=== PATIENT | male | born 1970 | race Caucasian/White ===

== ENCOUNTER 2016-09-07 11:02 | Day surgery (SDC) | payer OTHER ==
--- NOTE | 2016-08-27 20:26 | HP ---
PREOPERATIVE HISTORY AND PHYSICAL: DATE OF ADMISSION/SURGERY: 08/31/16 [facility] DATE OF OFFICE VISIT: 08/27/16 ATTENDING SURGEON: Dr. Che Castro. (DICTATED BY CARLOS BURGER) PROCEDURE: Left shoulder arthroscopic excision of distal clavicle, decompression, debridement, and possible subpectoral biceps tenodesis. CHIEF COMPLAINT: Left shoulder pain. HISTORY OF PRESENT ILLNESS: Grady is a 45-year-old man, who presents to the clinic for ongoing left shoulder pain due to impingement syndrome and biceps tendinitis. He has had this pain for several months. He has failed conservative measures to include physical therapy and injection; therefore, agreed to undergo left shoulder arthroscopic excision of distal clavicle, decompression, debridement, and possible subpectoral biceps tenodesis with Dr. Castro on 08/31/16. PAST MEDICAL HISTORY: 1. Diabetes. 2. Hypertension. 3. Gout. 4. Anxiety. 5. Depression. 6. Hyperlipidemia. PAST SURGICAL HISTORY: 1. Brain surgery. 2. Right Achilles tendon repair. 3. Bilateral knee surgeries. 4. [place] teeth. 5. Right wrist ORIF. Denies prior complications with anesthesia. MEDICATIONS: 1. Venlafaxine HCl ER 150 mg take 1 tab by mouth every day. 2. Allopurinol 300 mg take 1 by mouth every day. 3. Amlodipine besylate 5 mg take 1 by mouth every day. 4. Lisinopril 20 mg take 1 by mouth daily. 5. Divalproex sodium ER 250 mg 1 by mouth daily. 6. Advil 200 mg as needed. 7. Icy Hot 2.5% apply to the area as directed on package. 8. Zocor. ALLERGIES: No known drug allergies. Not allergic to latex. Allergy to BEE STING. FAMILY HISTORY: Positive for high cholesterol. SOCIAL HISTORY: He lives with his . He works as a lunch truck driver. He denies tobacco use. He reports occasional alcohol consumption. REVIEW OF SYSTEMS: General: Negative for fever, chills, or night sweats. No known anesthesia problems. HEENT: Positive for headache. Denies lightheadedness or syncopal episodes. Integumentary: Negative for abrasions, lesions, or open wounds. Cardiothoracic: Negative for chest pain, palpitations , or edema. Positive for hypertension. Pulmonary: Negative for shortness of breath with exertion, chronic cough, or COPD. GI: Positive for intermittent GERD and denies nausea, vomiting, diarrhea, or constipation. : Negative for nocturia, urinary frequency, history of UTIs, or kidney problems. Musculoskeletal: Positive for current complaint. Neuro: Negative for numbness and tingling, history of seizure, stroke, or epilepsy. Endocrine: Positive for diabetes. Negative for thyroid issues. Heme: Negative for easy bruising, anemia, excessive bleeding. Denies history of DVT or PE. Denies history of bleeding disorder. Infectious Disease: Negative for history of MRSA , hep C, or HIV. PHYSICAL EXAMINATION GENERAL: A 45-year-old, well-developed, well-nourished male, in no acute distress, alert and oriented x3. Appropriate mood and affect. VITAL SIGNS: Height 68, weight 245, pulse 64, blood pressure 113/65, respiratory rate 16, temperature 97.9, BMI 37.2. HEENT: Normocephalic, atraumatic. PERRLA. NECK: Supple. Throat clear. PULMONARY: Lungs are clear to auscultation bilaterally. No wheezing, rhonchi, or rales. CARDIO: Regular rate and rhythm. S1, S2. No murmurs, gallops, or rubs. No edema. ABDOMEN: Positive bowel sounds. Soft and nontender. NEURO: Alert and oriented x3. Cranial nerves grossly intact. Sensation intact to light touch. MUSCULOSKELETAL: Left upper extremity: Skin is intact. No warmth or erythema. Tenderness to palpation over the AC joint and the proximal biceps. Forward flexion 150, abduction 130, external rotation 55, internal rotation to the lumbar spine. +5/5 strength with rotator cuff testing. Positive Neer, [place], [place], and [place]. +2 radial and ulnar pulse. Sensation intact to light touch distally. DIAGNOSTIC STUDIES: MRI of the left shoulder reveals evidence of impingement _ in the biceps groove. No evidence of full-thickness rotator cuff tear. IMPRESSION: Left shoulder subacromial impingement, biceps tendinitis, and acromioclavicular joint arthritis. PLAN: The patient is scheduled to undergo a left shoulder arthroscopic excision of distal clavicle, decompression, debridement, possible subpectoral biceps tenodesis with Dr. Castro on 08/31/16. He will return to the office 10 to 14 days for postop and suture removal. Percocet will be used for postop pain management. CARLOS BURGER [id number]/[facility] #: [id number] MTDD
[~2016-09-07 11:02] MED LIST: Buffered Lidocaine 0.9% SYRIN* 5 ML/SYR SYRINGE INTRADERM ONE; Famotidine IV* 10 MG/ML 2 ML (20 mg) IV ONE; Morphine INJ* 2 MG/ML 1 ML SYRINGE IV PRN; PROCHLORPERAZINE INJ 5 MG/ML 2 ML VIAL IV PRN; Scopolamine 1.5 mg* PATCH TRANSDERM PRN; fentaNYL* 50 MCG/ML 2 ML VIAL (100 MCG VIAL) IV PRN; oxyCODONE/Acetamin 5/325 MG* TAB PO PRN
[2016-09-07] MEDS ORDERED: Famotidine IV* 10 MG/ML 2 ML (20 mg) ONE (11:15)
[2016-09-07] MEDS ORDERED: ceFAZolin 2 GM PREMIX(*) 2 GM/50 ML BAG IVPB ONE (11:15)
[2016-09-07] MEDS ORDERED: Buffered Lidocaine 0.9% SYRIN* 5 ML/SYR SYRINGE ONE (11:16)
[2016-09-07] MEDS ORDERED: Midazolam* 1 MG/ML 5 ML VIAL (5 MG) ONE (12:02)
[2016-09-07] MEDS ORDERED: KETAMINE HCL* 50 MG/ML 10 ML VIAL ONE (12:02)
[2016-09-07] MEDS ORDERED: fentaNYL* 50 MCG/ML 2 ML VIAL (100 MCG VIAL) ONE (12:02)
[2016-09-07] MEDS ORDERED: Bupivacaine 0.25% SDV* 30 ML ONE ×2 (12:40→13:08)
[2016-09-07] MEDS ORDERED: methylPREDNISolone ACETATE 80* 80 MG/ML 1 ML VIAL ONE (14:30)
[2016-09-07] MEDS ORDERED: Propofol* 10 MG/ML 20 ML BTL IV PUSH ONE (14:36)
[2016-09-07] MEDS ORDERED: Lidocaine 2% PF * 5 ML VIAL ONE (14:36)
[2016-09-07] MEDS ORDERED: Ketorolac INJ* 30 MG/ML 1 ML VIAL ONE (14:36)
[2016-09-07] MEDS ORDERED: Ondansetron INJ* 2 MG/ML VIAL ONE (14:36)
[2016-09-07] MEDS ORDERED: Flumazenil* 0.1 MG/ML 5 ML MDV ONE (15:04)
[2016-09-07 16:26] VITALS: BP 118/72
[2016-09-10] MEDS ORDERED: Scopolomine PATCH Remove* 1 NOTE MISC PATCH OFF ONE (06:12)
--- NOTE | 2016-09-17 02:29 | OP ---
CC: PCP, Karan Collins MD * DATE OF OPERATION: 09/07/16 - [facility] DATE OF : 74 SURGEON: Che Castro MD MOTORCYCLE RACER: CARLOS Rogers ANESTHESIOLOGIST: Dr. Perry. ANESTHESIA: General interscalene block. PRE-OP DIAGNOSIS: Left shoulder AC joint arthritis with SLAP tear, also impingement. POST-OP DIAGNOSIS: Left shoulder AC joint arthritis with SLAP tear, also impingement. OPERATIVE PROCEDURE: 1. Left shoulder arthroscopy with extensive glenohumeral debridement. 2. Cervical decompression. 3. Distal clavicle excision. 4. Subpectoral biceps tenodesis. 5. Subacromial injection of Depo-Medrol. COMPLICATIONS: None. ESTIMATED BLOOD LOSS: Minimal. IMPLANTS USED: One 2.8 Q-FIX anchor. INDICATIONS: Grady Edgar is a 45-year-old male who sustained a work related injury to his shoulder and therefore, was diagnosed with impingement syndrome, biceps tendonitis, as well as AC joint arthritis. He failed conservative management including physical therapy and injection and after obtaining Worker' s Comp approval, has elected to proceed with surgery. Risks and benefits of the surgery were discussed at length, including but are not limited to bleeding , infection, damage to nerves, vessels, surrounding structures, wound nonhealing , persistent pain, scarring, stiffness, incomplete relief of symptoms, need for further surgery, risks of anesthesia, risk of DVT. He elected to proceed. DESCRIPTION OF PROCEDURE: The patient was greeted in the preoperative area by the attending surgeon. Correct extremity was marked and consent was confirmed. The patient then underwent interscalene nerve block by the anesthesiologist, then he was brought to the operating suite where he was placed in supine position on operating table. He then underwent general anesthesia with endotracheal intubation after which the patient was placed in the right lower decubitus position with axillary roll. All bony prominences were padded. He was secured with a peg board. The left arm was draped unsterile with 10 pounds of traction. The left shoulder was prepped and draped in usual sterile fashion beginning with chlorhexidine soap scrub, and alcohol wipe, and a final prep with ChloraPrep. After appropriate surgical pause indicating site, side, procedure, and administration of antibiotics, a posterolateral portal was made sharply with an 11 blade. The scope was positioned in the joint. The joint was examined. Mid biceps, the superior labrum was torn. The anterior portals were made in an outside- in fashion. Superior labrum was torn, a type 2 SLAP tear. The biceps was then tenotomized. The anterior, posterior, and superior labrum were then debrided back using a shaver. The undersurface of the subscap had some mild fraying, which was debrided back. The supraspinatus tendon had less than 5% tearing, which was also debrided back. Once the debridement was completed, after confirming that the glenoid had grade 0 chondral changes along the humerus and the glenoid, the inferior leaflet was then packed. After the debridement was complete, attention was directed to subacromial space. There was abundant bursitis in the subacromial space. Lateral portals were made in an outside-in fashion. The shaver was used to debride this back. The bursa was extensively removed. The under surface of the acromion was then skeletonized using acromioplasty and then a 4-0 oval moises was then used to do subacromial decompression. Once the acromioplasty was complete, all fluid and debris was removed from the subacromial space. The attention was directed to the AC joint. The moises was positioned in the anterior portal and the distal clavicle excision was done using the arthroscopic moises. 8 mm of distal clavicle was then removed using the arthroscopic moises. The distal clavicle was then taken through range of motion. All excess debris was removed using the shaver. At this point, an 18 -gauge needle was then placed in the subacromial space and once the distal clavicle incision and subacromial decompression was completed, attention was directed to the biceps. The bed was airplaned to the left side. The anterior aspect of the shoulder was prepped again using ChloraPrep and a #15 blade was used to make the incision in line with the biceps. The skin quality was quite poor. Soft tissue was carefully dissected using Metzenbaum scissors. Once the pec fascia was identified, the remainder of dissection was done bluntly. The Merlin was used to elevate the tissues proximally. Bicipital groove was identified and the biceps was brought through the groove. There is abundant synovitis apparent. The bicipital groove was then prepared using electrocautery device, a red ball rasp and osteotome. The Q-FIX anchor was then placed after drilling unicortically with excellent purchase. The sutures were passed through the biceps tendon. Once they were proximal to the bicipital groove, the excess stump was excised and then the sutures were shuttled back and tied and secured. The wounds were copiously irrigated with sterile saline. The portals were closed with 0 nylon. The anterior wound was closed with 2-0 Vicryl and 3-0 Monocryl. Again, the skin quality was poor. Sterile dressings were applied. The anterior wound was injected with 20 cc of 0.25% Marcaine. The subacromial space was injected with 80 mg of Depo and 5 cc of Marcaine. Sterile dressings was applied. A Cryo/Cuff and UltraSling were then applied. He was awoken from anesthesia and transferred to the PACU in stable condition. POSTOPERATIVE PLAN: He will be discharged on pain medications and antibiotics. He will be nonweightbearing for 6 weeks. He will be allowed to work on physical therapy in the first 10 to 14 days. He will follow up within 10 to 14 days as well. DVT prophylaxis was considered, but deferred due to no previous personal or family history. I will see the patient back in 10 to 14 days. [id number]/[facility] #: [id number] [facility] CENTERVivian
== END 2016-09-07 16:05 | disposition home or self-care (01) ==
LOC: OREAST 11:02
PROVIDERS: ATTEND Orthopaedic Surgery
DX: S43.432A Superior glenoid labrum lesion of left shoulder, initial encounter (principal); X58.XXXA Exposure to other specified factors, initial encounter; Y92.9 Unspecified place or not applicable; M19.012 Primary osteoarthritis, left shoulder; M25.812 Other specified joint disorders, left shoulder; M75.52 Bursitis of left shoulder; M65.812 Other synovitis and tenosynovitis, left shoulder; G47.30 Sleep apnea, unspecified; E11.9 Type 2 diabetes mellitus without complications; I10 Essential (primary) hypertension; M10.9 Gout, unspecified; F41.9 Anxiety disorder, unspecified; F32.9 Major depressive disorder, single episode, unspecified; E78.5 Hyperlipidemia, unspecified
CPT/HCPCS: C1776; J0690; J1040; J1885; J2250; J2405; J2704; J3010

== ENCOUNTER 2017-05-13 09:15 | Day surgery (SDC) | payer OTHER ==
[~2017-05-13 09:15] MED LIST changes: +Dexamethasone IV* 4 MG/ML 1 ML (4 MG) IV SLOW PU ONE; -Morphine INJ* 2 MG/ML 1 ML SYRINGE IV PRN; -PROCHLORPERAZINE INJ 5 MG/ML 2 ML VIAL IV PRN; -Scopolamine 1.5 mg* PATCH TRANSDERM PRN; -fentaNYL* 50 MCG/ML 2 ML VIAL (100 MCG VIAL) IV PRN; -oxyCODONE/Acetamin 5/325 MG* TAB PO PRN
[2017-05-13] MEDS ORDERED: Famotidine IV* 10 MG/ML 2 ML (20 mg) ONE (09:36)
[2017-05-13] MEDS ORDERED: Buffered Lidocaine 0.9% SYRIN* 5 ML/SYR SYRINGE ONE (09:36)
[2017-05-13] MEDS ORDERED: ceFAZolin 2 GM in 100 MLS NS (*) BAG IVPB ONE (09:36)
[2017-05-13] MEDS ORDERED: Dexamethasone IV* 4 MG/ML 1 ML (4 MG) ONE (09:36)
[2017-05-13] MEDS ORDERED: Bupivacaine 0.5% SDV PF* 10-30ML VIAL ONE (10:30)
[2017-05-13] MEDS ORDERED: fentaNYL* 50 MCG/ML 2 ML VIAL (100 MCG VIAL) ONE (10:35)
[2017-05-13] MEDS ORDERED: Midazolam* 1 MG/ML 10 ML VIAL (10 MG) ONE (10:35)
[2017-05-13] MEDS ORDERED: Propofol* 10 MG/ML 20 ML BTL IV PUSH ONE (10:36)
[2017-05-13] MEDS ORDERED: Chloroprocaine 2%* 20 ML VIAL ONE (10:36)
[2017-05-13] MEDS ORDERED: Ondansetron INJ* 2 MG/ML VIAL ONE (10:36)
[2017-05-13] MEDS ORDERED: Phenylephrine INJ* 10 MG/ML 1 ML VIAL (10 MG) ONE (11:08)
[2017-05-13] MEDS ORDERED: fentaNYL* 50 MCG/ML 2 ML VIAL (100 MCG VIAL) IV PRN (11:09)
[2017-05-13] MEDS ORDERED: HYDROmorphone INJ* 1 MG/ML CARPUJECT SYRINGE IV PRN (11:09)
[2017-05-13] MEDS ORDERED: DiMENhydriNATE IV* 50 MG/ML VIAL IV PUSH PRN (11:09)
[2017-05-13] MEDS ORDERED: Naloxone* 0.4 MG/ML 1 ML VIAL IV PRN (11:09)
[2017-05-13] MEDS ORDERED: oxyCODONE/Acetamin 5/325 MG* TAB PO PRN (11:09)
[2017-05-13] MEDS ORDERED: Ondansetron INJ* 2 MG/ML VIAL IV PRN (11:09)
--- NOTE | 2017-05-13 11:46 | OP ---
Operative Report - Blank - Operative Report Date of Operation: 05/13/17 Note: PATIENT: Grady Edgar DATE OF : 74 DATE OF SURGERY: 05/13/17 SURGEON: Klaus Diego MD SPRING ASSEMBLER: CARLOS Nelson, whos assistance was necessary for positioning, retraction, help with instrumentation, and closure. ANESTHESIOLOGIST: Dr. Tang PREOPERATIVE DIAGNOSIS: Right gastrocnemius contracture POSTOPERATIVE DIAGNOSIS: Right gastrocnemius contracture OPERATION: 1. Right modified Beatrice gastrocnemius recession. 2. Right plantaris tenotomy. ANESTHESIA: spinal IMPLANTS: none TOURNIQUET TIME: Less than 30 minutes with a well-padded thigh tourniquet at 250mmHg SPECIMENS: none ESTIMATED BLOOD LOSS: minimal COMPLICATIONS: none STATUS: Stable from the operating room to the recovery room and then home. INDICATIONS FOR PROCEDURE: Grady has bilateral metatarsalgia and gastrocnemius contractures. Both operative and non operative treatment alternatives were reviewed. Further, the nature and risks of surgery were reviewed in careful detail, in the office as well as the pre-operative holding area. Our discussions regarding the risks of surgery included, but were not limited to, infection, wound problems, nerve injury, neuroma, RSD, persistent symptoms, blood clot, persistent symptoms, failure of the surgery, and even the remote chance of catastrophic complication, including loss of limb. DESCRIPTION OF PROCEDURE: The patient was seen in the preoperative holding unit and informed written consent was obtained. The appropriate extremity was marked. The patient was then brought to the operating room and carefully positioned on the operating room table. Anesthesia was induced. All bony prominences were padded with great care. A well-padded thigh tourniquet was placed. A chlorhexidine based pre- scrub was performed followed by a chloraprep prep and drape in standard sterile fashion. A surgical safety pause was then conducted in which we confirmed the appropriate patient, extremity, planned procedure, availability of equipment, indication and administration of prophylactic antibiotics, and DVT prophylaxis in the form of a compression boot on the non-surgical extremity. I began with Esmarch exsanguination of the limb and inflated the tourniquet. I then made an approximately 3-cm incision at the posteromedial calf. I carried the dissection through the soft tissue and divided the crural fascia longitudinally. I then exposed the fascia of the gastrocnemius muscle. Great care was taken to protect the sural nerve throughout this procedure. I cleared all adhesions from the posterior aspect of the gastrocnemius fascia and then transected this in its entirety from medially to laterally. I then identified the plantaris tendon, which was also tight medially. This was transected. These procedures had the effect of improving the ankle dorsiflexion to approximately 10 degrees. I then again confirmed that the sural nerve was in continuity. We irrigated copiously. We then used #3-0 Monocryl for the subdermal layer and marcus for the skin. A sterile dressing was applied followed by a splint with the ankle in neutral position. The patient was then awakened from anesthesia and transferred to the recovery room in stable condition. There were no complications. All needle and sponge counts were correct at the end of the case. ATTESTATION: I attest I was present and scrubbed and performed the critical portions of the procedure myself. POSTOPERATIVE PLAN: The patient will remain [id number] for two weeks. At that time, sutures will be removed and Steri-Strips applied and transition into a tall Aircast boot and begin weight-bearing at that time. The patient will remain in the boot until four to six weeks postoperatively. We will begin physical therapy after the first postoperative visit.
[2017-05-13 12:47] VITALS: BP 146/93
== END 2017-05-13 12:49 | disposition home or self-care (01) ==
LOC: OR 09:15
PROVIDERS: ATTEND Orthopaedic Surgery
DX: M67.01 Short Achilles tendon (acquired), right ankle (principal); M67.02 Short Achilles tendon (acquired), left ankle; M77.41 Metatarsalgia, right foot; M77.42 Metatarsalgia, left foot; E11.9 Type 2 diabetes mellitus without complications; Z79.84 Long term (current) use of oral hypoglycemic drugs; I10 Essential (primary) hypertension; K21.9 Gastro-esophageal reflux disease without esophagitis; Z68.36 Body mass index [BMI] 36.0-36.9, adult; F41.8 Other specified anxiety disorders; M10.9 Gout, unspecified
CPT/HCPCS: J1100; J2250; J2400; J2405; J2704; J3010

== ENCOUNTER 2017-05-24 18:10 | Emergency (ER) | payer OTHER ==
--- OUTSIDE RECORDS SUMMARY | 2017-05-24 18:29 | XMS REPORT ---
:1970 External Reference #:[id number] Author Organization [facility] Address [address] [address] Phone [phone] Care Team Providers Name Role Phone Collins, KaranDO Primary Care Physician Unavailable Payers Type Date Identification Numbers Payment Provider Subscriber Workers Compensation Effective: Policy Number: [id number] Austin Edgar 2016 Services Onset: 2016 Group Name: [id number] [address] PayID: [place] [address] Commercial Policy Number: [id number] Lifetime Benefit Solution Chica Edgar PayID: [id number] [address] [place] [address] Problems Date Description Provider Status Onset: 09/11/2016 Bicipital tenosynovitis Che Castro MD Active Onset: 06/09/2016 Sprain of left acromioclavicular joint, Che Castro MD Active subsequent encounter Onset: 06/09/2016 Injury of shoulder region Che Castro MD Active Onset: 06/09/2016 Disorder of shoulder Che Castro MD Active Family History Date Family Member(s) Problem(s) Comments General No Current Problems Social History Type Date Description Comments Marital Status Lives With Occupation Currently Working heavy truck mechanic ETOH Use Occasionally consumes alcohol Smoking Patient has never smoked Recreational Drug Use Denies Drug Use Daily Caffeine Does Not Consume Caffeine Exercise Type/Frequency Exercises sporadically Allergies, Adverse Reactions, Alerts Date Description Reaction Status Severity Comments 02/07/2016 NKDA active 02/07/2016 Bee Sting active Medications Medication Date Status Form Strength Qnty SIG Indications Ordering Provider Venlafaxine HCL / Active Caps ER 150mg Take One Unknown ER 0000 24HR Capsule By Mouth Every Day Allopurinol / Active Tablets 300mg Take One Unknown 0000 Tablet By Mouth Every Day Amlodipine / Active Tablets 5mg Take One Unknown Besylate 0000 Tablet By Mouth Every Day Lisinopril / Active Tablets 20mg Take One Unknown 0000 Tablet By Mouth Every Day Divalproex / Active Tablets ER 250mg Take One Unknown Sodium ER 0000 24HR Tablet By Mouth Every Day Advil / Active Tablets 200mg 3 po as Unknown 0000 needed Icy Hot Pain / Active Gel 2.5% apply to Unknown Relieving 0000 area as directed on package Zocor / Active Unknown 0000 Keflex 09/11/ Hx Capsules 500mg 40cap take 1 M75.42 Zaneb 2016 - s pill 4 Yase, 02/01/ times a MD 2016 day for 10 days Percocet 08/27/ Hx Tablets 5-325mg 40tab 1-2 tabs Zaneb 2016 - s by mouth , 02/01/ every 4-6 2016 hours as needed pain. Do not fill until 08/31/16 Keflex 08/27/ Hx Capsules 500mg 12cap take 1 tab Zaneb 2016 - s by mouth , 09/07/ four times 2016 a day x 3 days. Do not fill until 08/31/16 Invokamet / Hx Tablets 50-1000mg Take One Unknown 0000 - Tablet By 06/08/ Mouth 2016 Twice A Day Replaces Metformin Metformin HCL / Hx Tablets 1000mg Unknown 0000 - 2016 Triamcinolone / Active Injection Lillian (Kenalog) 0000 Ermias powell PA-C Medications Administered in Office Medication Date Status Form Strength Qnty SIG Indications Ordering Provider Depomedrol Administered Injection Moises M 40MG 016 MD Yunior Vital Signs Date Vital Result Comment 05/04/2017 Height 68 inches 5'8" Weight 240.00 lb BP Systolic 150 mmHg BP Diastolic 98 mmHg Respiratory Rate 17 /min Body Temperature 97.9 F Pain Level 6 BMI (Body Mass Index) 36.5 kg/m2 02/02/2017 Height 68 inches 5'8" Weight 240.00 lb BP Systolic 132 mmHg BP Diastolic 68 mmHg Respiratory Rate 18 /min Pain Level 0 BMI (Body Mass Index) 36.5 kg/m2 12/01/2016 Height 68 inches 5'8" Weight 240.00 lb BP Systolic 122 mmHg BP Diastolic 80 mmHg Respiratory Rate 18 /min Pain Level 0 BMI (Body Mass Index) 36.5 kg/m2 10/29/2016 Height 68 inches 5'8" Weight 240.00 lb Respiratory Rate 16 /min Body Temperature 97.9 F Pain Level 4 BMI (Body Mass Index) 36.5 kg/m2 09/21/2016 Height 68 inches 5'8" Weight 247.00 lb Heart Rate 64 /min BP Systolic 116 mmHg BP Diastolic 73 mmHg Body Temperature 97.2 F BMI (Body Mass Index) 37.6 kg/m2 09/17/2016 Height 68 inches 5'8" Weight 247.00 lb BP Systolic 122 mmHg BP Diastolic 81 mmHg Body Temperature 97.1 F Pain Level 7 BMI (Body Mass Index) 37.6 kg/m2 09/11/2016 Height 68 inches 5'8" Weight 247.00 lb Heart Rate 67 /min Respiratory Rate 14 /min Body Temperature 97.6 F Pain Level 2 BMI (Body Mass Index) 37.6 kg/m2 09/09/2016 Height 68 inches 5'8" Weight 247.00 lb Heart Rate 78 /min BP Systolic 106 mmHg BP Diastolic 66 mmHg Body Temperature 97.2 F BMI (Body Mass Index) 37.6 kg/m2 09/08/2016 Height 68 inches 5'8" Heart Rate 104 /min BP Systolic 142 mmHg BP Diastolic 68 mmHg Respiratory Rate 16 /min Pain Level 4 08/27/2016 Height 68 inches 5'8" Weight 245.00 lb Heart Rate 64 /min BP Systolic 113 mmHg BP Diastolic 65 mmHg Respiratory Rate 17 /min Body Temperature 97.9 F BMI (Body Mass Index) 37.2 kg/m2 06/25/2016 Height 68 inches 5'8" Weight 245.00 lb Heart Rate 64 /min BP Systolic 127 mmHg BP Diastolic 86 mmHg Respiratory Rate 15 /min Pain Level 9 BMI (Body Mass Index) 37.2 kg/m2 06/09/2016 Height 68 inches 5'8" Weight 245.00 lb Heart Rate 68 /min BP Systolic Sitting 110 mmHg BP Diastolic Sitting 64 mmHg Respiratory Rate 16 /min Pain Level 8 BMI (Body Mass Index) 37.2 kg/m2 06/08/2016 Height 68 inches 5'8" Weight 245.00 lb BP Systolic Sitting 126 mmHg BP Diastolic Sitting 78 mmHg Respiratory Rate 16 /min Pain Level 8 BMI (Body Mass Index) 37.2 kg/m2 03/23/2016 Height 68 inches 5'8" Weight 245.00 lb BP Systolic Sitting 132 mmHg BP Diastolic Sitting 78 mmHg Pain Level 8 BMI (Body Mass Index) 37.2 kg/m2 02/21/2016 Height 68 inches 5'8" Weight 245.00 lb BP Systolic Sitting 124 mmHg BP Diastolic Sitting 70 mmHg Pain Level 2 BMI (Body Mass Index) 37.2 kg/m2 02/07/2016 Height 68 inches 5'8" Weight 245.00 lb Heart Rate 85 /min BP Systolic 124 mmHg BP Diastolic 74 mmHg BMI (Body Mass Index) 37.2 kg/m2 Results Test Date Test Result H/L Range Note Laboratory test finding 09/07/2016 Point of Care Glucose 88 mg/dL 74-106 1 1 Electrophysiology Technician: [id number] Procedures Date CPT Code Description Status 05/04/2017 99396 Inject/Drain Joint/Bursa Major Completed 09/07/2016 85716 Arthroscopy,Shoulder Decompression Of Subacromial Space Completed W/Acromio 09/07/2016 20866 Arthroscopy,Shoulder Decompression Of Subacromial Space Completed W/Acromio 09/07/2016 02747 Arthroscopy,Shoulder,Distal Claviculectomy Incl Dist Completed Articular SR 09/07/2016 13873 Arthroscopy,Shoulder,Distal Claviculectomy Incl Dist Completed Articular SR 09/07/2016 15582 Arthroscopy Shoulder Debridement Extensive Completed 09/07/2016 62295 Arthroscopy Shoulder Debridement Extensive Completed 09/07/2016 18786 Tenodesis Biceps Long Tendon Completed 09/07/2016 47847 Tenodesis Biceps Long Tendon Completed 02/07/2016 83067 Inject/Drain Joint/Bursa Major Completed Encounters Type Date Location Provider CPT E/M Dx Office Visit 05/04/2017 2:15p [facility] [place] [address] M75.42 [facility] M75.22 S43.52xD Office Visit 02/02/2017 2:15p [facility] [place] [address] M75.42 [facility] M75.22 Z48.89 Office Visit 06/25/2016 8:00a [facility] [place] [address] M75.42 [facility] S43.52xD S46.102A M75.22 Office Visit 06/09/2016 9:00a [facility] [place] [address] M75.42 [facility] M75.42 S46.102A S43.52xD S43.52xD Office Visit 06/08/2016 8:30a [facility] [place] [address] M75.42 [facility] S43.52xD S43.52xD Office Visit 03/23/2016 10:30a [place] [address] M75.42 Of [facility] Office Visit 02/21/2016 3:15p [place] [address] M75.42 Of [facility] Office Visit 02/07/2016 11:00a [place] [address] S43.422A Of [facility] W18.49xA Plan of Care Future Appointment(s):06/15/2017 1:15 pm - Che Castro MD at [facility]05/07/2017 2:00 pm - Klaus Diego MD at [facility]05/04/2017 - Che Castro, MDM75.42 Impingement syndrome of left shoulderFollow up:Follow up: 6 xxauvF21.22 Bicipital tendinitis, left mneojkifH63.52xD Sprain of left acromioclavicular joint, subsequent encounter
--- OUTSIDE RECORDS SUMMARY | 2017-05-24 18:29 | XMS REPORT ---
:1970 External Reference #:[id number] Author Organization [facility] Address [address] [address] Phone [phone] Care Team Providers Name Role Phone Karan Collins Primary Care Physician Unavailable Payers Type Date Identification Numbers Payment Provider Subscriber Commercial Policy Number: [id number] Lifetime Benefit Solution Chica Edgar PayID: [id number] [address] [place] [address] Workers Compensation Effective: Policy Number: Austin Edgar 2016 [id number] Services Onset: 2016 Group Name: [phone] [address] PayID: [place] [address] Problems Date Description Provider Status Onset: 05/07/2017 Metatarsalgia Klaus Diego MD Active Onset: 05/07/2017 Tendon contracture Klaus Diego MD Active Onset: 09/11/2016 Bicipital tenosynovitis Che Castro MD [...] Marital Status Lives With Occupation Currently Working solo truck driver ETOH Use Occasionally consumes alcohol Smoking Patient has never smoked Recreational Drug Use Denies Drug Use Daily Caffeine Does Not Consume Caffeine Exercise Type/Frequency Exercises sporadically Allergies, Adverse Reactions, Alerts Date Description Reaction Status Severity Comments 02/07/2016 NKDA active 02/07/2016 Bee Sting active Medications Medication Date Status Form Strength Qnty SIG Indications Ordering Provider Oxycodone HCL 05/13/ Active Capsules 5mg 30caps take 1 to 2 Klaus 2018 tablets by mauro Diego MD 4-6 hours as needed for pain. Venlafaxine / Active Caps ER 150mg Take One Unknown HCL ER 0000 24HR Capsule By Mouth Every [...] Unknown 0000 Keflex 09/11/ Hx Capsules 500mg 40caps take 1 pill M75.42 Che 2016 - 4 times a MD Matthew 02/01/ day for 10 2016 days Percocet 08/27/ Hx Tablets 5-325mg 40tabs 1-2 tabs by Che 2016 - mouth every MD Matthew 02/01/ 4-6 hours 2016 as needed pain. Do not fill until 08/31/16 Keflex 08/27/ Hx Capsules 500mg 12caps take 1 tab Che 2016 - by mouth MD Matthew 09/07/ four times 2017 a day x 3 days. Do not fill until 08/31/16 Invokamet / Hx Tablets 50-1000mg Take One Unknown 0000 - Tablet By 06/08/ Mouth Twice 2016 A Day Replaces Metformin Metformin HCL / Hx Tablets 1000mg Unknown 0000 - 2016 Medications Administered in Office Medication Date Status Form Strength Qnty SIG Indications Ordering Provider Triamcinolone 05/04/ Administered Injection Lillian (Kenalog) 2017 ONEL Jimenez Depomedrol 40MG 02/06/ Administered Injection Moises Ribeiro 2015 MD Yunior Vital Signs Date Vital Result Comment 05/21/2017 Height 68 inches 5'8" Heart Rate 85 /min BP Systolic 158 mmHg BP Diastolic 98 mmHg Respiratory Rate 16 /min Body Temperature 98.2 F Pain Level 2 05/07/2017 Height 68 inches 5'8" Weight 240.00 lb BP Systolic 144 mmHg BP Diastolic 84 mmHg Respiratory Rate 16 /min Body Temperature 98.2 F Pain Level 6 BMI (Body Mass Index) 36.5 kg/m2 05/04/2017 Height 68 inches 5'8" Weight 240.00 [...] Result H/L Range Note Laboratory test finding 05/13/2017 Point of Care Glucose 111 mg/dL High 70 -100 1 Laboratory test finding 09/07/2016 Point of Care Glucose 88 mg/dL 74-106 2 1 Linux Vmware Administrator: [id number] 2 Linux Vmware Administrator: [id number] Procedures Date CPT Code Description Status 05/13/2017 70072 Gastrocnemius Recession Completed 05/13/2017 29618 Gastrocnemius Recession Completed 05/04/2017 02925 Inject/Drain Joint/Bursa Major Completed 09/07/2016 40795 Arthroscopy,Shoulder Decompression Of Subacromial Space Completed W/Acromio 09/07/2016 90621 Arthroscopy,Shoulder Decompression Of Subacromial Space Completed W/Acromio 09/07/2016 04465 Arthroscopy,Shoulder,Distal Claviculectomy Incl Dist Completed Articular SR 09/07/2016 40571 Arthroscopy,Shoulder,Distal Claviculectomy Incl Dist Completed Articular SR 09/07/2016 25759 Arthroscopy Shoulder Debridement Extensive Completed 09/07/2016 86503 Arthroscopy Shoulder Debridement Extensive Completed 09/07/2016 07834 Tenodesis Biceps Long Tendon Completed 09/07/2016 39113 Tenodesis Biceps Long Tendon Completed 02/07/2016 96511 Inject/Drain Joint/Bursa Major Completed Encounters Type Date Location Provider CPT E/M Dx Office Visit 05/07/2017 2:00p [facility] [place] [address] M67.01 C.M.A. M67.02 M77.41 M77.42 Office Visit 05/04/2017 2:15p [facility] [place] [address] M75.42 C.M.A. M75.22 S43.52xD Office Visit 02/02/2017 2:15p [facility] [place] [address] M75.42 C.M.A. M75.22 Z48.89 Office Visit 06/25/2016 8:00a [facility] [place] [address] M75.42 C.M.A. S43.52xD S46.102A M75.22 Office Visit 06/09/2016 9:00a [facility] [place] [address] M75.42 C.M.A. M75.42 S46.102A S43.52xD S43.52xD Office Visit 06/08/2016 8:30a [facility] [place] [address] M75.42 [facility] S43.52xD S43.52xD Office Visit 03/23/2016 10:30a [place] [address] M75.42 Of [facility] Office Visit 02/21/2016 3:15p [place] [address] M75.42 Of [facility] Office Visit 02/07/2016 11:00a [place] [address] S43.422A Of [facility] W18.49xA Plan of Care Future Appointment(s):06/17/2017 2:30 pm - Che Castro MD at [facility].05/28/2017 8:30 am - Klaus Diego MD at [facility].05/21/2017 - Klaus Diego, MDM67.01 Short Achilles tendon ( acquired), right ankleFollow up:has appointment
[2017-05-24 18:55] VITALS: BP 134/75
--- NOTE | 2017-05-24 19:18 | UC ---
Skin Complaint HPI - HPI Summary HPI Summary: 46 yo male with pruritic rash x 1 week (or more) not spreading had surgery on right leg 2 weeks ago marcus out tomorrow - History of Current Complaint Chief Complaint: UCRash Time Seen by Provider: 05/24/17 19:05 Stated Complaint: RASH Hx Obtained From: Patient Onset/Duration: Sudden Onset, Gradual Onset, Lasting Minutes Timing: Constant Onset Severity: Mild Current Severity: None Pain Intensity: 0 Pain Scale Used: 0-10 Numeric Location: Other - bilat arms and right leg Character: Pruritus, Redness, Raised Alleviating Factor(s): Nothing Associated Signs & Symptoms: Positive: Negative, Rash - Allergy/Home Medications Allergies/Adverse Reactions: Allergies Allergy/AdvReac Type Severity Reaction Status Date / Time Bee Stings Allergy Swelling Uncoded 05/13/17 09:58 Home Medications: Home Medications Oxycodone TAB(NF) [Oxycodone HCl 10 MG] 05/24/17 [History] Review of Systems Constitutional: Negative Skin: Rash Eyes: Negative ENT: Negative Respiratory: Negative Cardiovascular: Negative Gastrointestinal: Negative Genitourinary: Negative Motor: Negative Neurovascular: Negative Musculoskeletal: Negative Neurological: Negative Psychological: Negative Is Patient Immunocompromised?: No All Other Systems Reviewed And Are Negative: Yes PMH/Surg Hx/FS Hx/Imm Hx Previously Healthy: Yes Endocrine History: Diabetes, Dyslipidemia Cardiovascular History: Hypertension - Surgical History Surgical History: Yes Surgery Procedure, Year, and Place: bilat knees arthroscopic. craniotomy- benign cyst. right wrist fx, left wrist fx. right achilles tendon. LEFT SHOULDER BICEPS TENODESIS - Family History Known Family History: Positive: Hypertension, Diabetes - Social History Alcohol Use: Occasionally Substance Use Type: None Smoking Status (MU): Never Smoked Tobacco Physical Exam Triage Information Reviewed: Yes Appearance: Well-Appearing, No Pain Distress, Well-Nourished Vital Signs: Initial Vital Signs Temp 98.1 F 05/24/17 18:39 Pulse 76 05/24/17 18:39 Resp 18 05/24/17 18:39 BP 134/75 05/24/17 18:39 Pulse Ox 97 05/24/17 18:39 Vital Signs Reviewed: Yes Eyes: Positive: Conjunctiva Clear ENT: Positive: Hearing grossly normal. Negative: Nasal congestion, Nasal drainage, Trismus, Muffled voice, Hoarse voice Neck: Positive: Supple, Nontender Respiratory: Positive: Lungs clear, Normal breath sounds, No respiratory distress, No accessory muscle use Cardiovascular: Positive: RRR, No Murmur Musculoskeletal: Positive: ROM Intact, No Edema Neurological: Positive: Alert Psychological Exam: Normal Skin: Positive: rashes - see image Course/Dx - Diagnoses Provider Diagnoses: contact dermatitis Discharge - Discharge Plan Condition: Stable Disposition: HOME Prescriptions: Triamcinolone 0.5% CREAM(NF) [Triamcinolone 0.5% CREAM*] 1 applic TOPICAL QID 14 Days #60 tube Patient Education Materials: Contact Dermatitis (ED) Referrals: Jeffrey Rodriguez [Primary Care Provider] - 1 Week (if not improving) Additional Instructions: benadryl orally cool compresses with epsom salts Images Front/Back of Body, Lg (Parmer): 1 - c/w contact derm 2 - see 1 3 - see 1 4 - see one 5 - see one 6 - marcus
== END 2017-05-24 19:20 | disposition home or self-care (01) ==
LOC: UCCORT 18:10
DX: L25.9 Unspecified contact dermatitis, unspecified cause (principal); Z98.890 Other specified postprocedural states; E11.9 Type 2 diabetes mellitus without complications; Z79.84 Long term (current) use of oral hypoglycemic drugs; E78.5 Hyperlipidemia, unspecified; I10 Essential (primary) hypertension
CPT/HCPCS: 99212; G0463

== ENCOUNTER 2018-07-09 18:22 | Emergency (ER) | payer OTHER ==
[2018-07-09 18:40] VITALS: BP 155/96
--- NOTE | 2018-07-09 18:45 | UC ---
Skin Complaint HPI - HPI Summary HPI Summary: 47 y/o male presents to the urgent care c/o a painful lump w/ some redness in his Rt upper medial aspect of the Rt thigh for the past 2 weeks. 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 Pt states it is getting bigger and painful since yesterday. Pain is 8/10 specially w/ sitting and at touch. Pt has not taken anything to alleviate symptoms. Pt has Hx of DM type II , but denies Hx MRSA, fever, SOB, chest pain, abdominal pain, N/V/D, calf pain. - History of Current Complaint Chief Complaint: UCSkin Time Seen by Provider: 07/09/18 18:44 Stated Complaint: RT LEG SKIN COMPLAINT Hx Obtained From: Patient Onset/Duration: Gradual Onset, Lasting Weeks - 1 week, Still Present, Worse Since - yesterday Skin Exposure Onset/Duration: Weeks Ago - 2 weeks, Worse Since: Timing: Constant Onset Severity: Mild Current Severity: Moderate Pain Intensity: 8 Pain Scale Used: 0-10 Numeric Location: Discrete - RT upper thigh w/ a painful lump Character: Swelling, Redness, Raised, Painful Aggravating Factor(s): Touch Alleviating Factor(s): Nothing Associated Signs & Symptoms: Positive: Rash - Rt upper thigh painful lump, Tenderness. Negative: Fever, Chills Related History: Possible Reaction to: Environmental Exposure - Allergy/Home Medications Allergies/Adverse Reactions: Allergies Allergy/AdvReac Type Severity Reaction Status Date / Time Bee Stings Allergy Swelling Uncoded 07/09/18 18:39 Home Medications: Home Medications Gabapentin CAP(*) [Neurontin 100 mg CAP(*)] 200 mg PO BID 07/09/18 [History Confirmed 07/09/18] lamoTRIgine TAB(*) [Lamictal TAB(*)] 25 mg PO TID 07/09/18 [History Confirmed ] PMH/Surg Hx/FS Hx/Imm Hx Previously Healthy: Yes Endocrine History: Diabetes - diet control, Dyslipidemia Other Endocrine History: Gout Cardiovascular History: Hypertension Psychological History: Depression - Surgical History Surgical History: Yes Surgery Procedure, Year, and Place: bilat knees arthroscopic. craniotomy- benign cyst. right wrist fx, left wrist fx. right achilles tendon. LEFT SHOULDER BICEPS TENODESIS - Family History Known Family History: Positive: Hypertension, Diabetes - Social History Occupation: Employed Full-time Lives: With Family Alcohol Use: Rare Substance Use Type: None Smoking Status (MU): Never Smoked Tobacco Review of Systems All Other Systems Reviewed And Are Negative: Yes Constitutional: Positive: Negative Skin: Positive: Rash - painful lump in the Rt upper thigh for 2 weeks Eyes: Positive: Negative ENT: Positive: Negative Respiratory: Positive: Negative Cardiovascular: Positive: Negative Gastrointestinal: Positive: Negative Genitourinary: Positive: Negative Motor: Positive: Negative Neurovascular: Positive: Negative Musculoskeletal: Positive: Negative Neurological: Positive: Negative Psychological: Positive: Negative Is Patient Immunocompromised?: No Physical Exam - Summary Physical Exam Summary: Vital Signs Reviewed: Yes General: well appearing, well nourished obese male in no acute apparent pain distress, sitting comfortably on examining table Eye Exam: Normal Eyes: Positive: Conjunctiva Clear - PERRLA< EOMI, fundi grossly normal ENT: Positive: Normal ENT inspection, Hearing grossly normal, Pharynx normal, TMs normal Neck: Positive: Supple, Nontender, No Lymphadenopathy Respiratory: Positive: Chest non-tender, Lungs clear, Normal breath sounds, No respiratory distress Cardiovascular: Positive: RRR, No Murmur, Pulses Normal, Brisk Capillary Refill Abdomen Description: Positive: Nontender, No Organomegaly, Soft. Negative: CVA Tenderness (R), CVA Tenderness (L) Bowel Sounds: Positive: Present Musculoskeletal: Positive: Strength Intact, ROM Intact, No Edema Neurological: Positive: Alert, Muscle Tone Normal Psychological Exam: Normal Skin: Positive: medial aspect of the Rt thigh w/ a small erythematous pustule that is indurated and fluctuant, tender to palpation, swollen, and warm to touch about 2.0x2.0cm in size. FROM of Rt thigh, sensation is intact, capillary refill WNL, reflexes WNL Triage Information Reviewed: Yes Vital Signs: Initial Vital Signs Temp 98.3 F 07/09/18 18:34 Pulse 81 07/09/18 18:34 Resp 17 07/09/18 18:34 BP 155/96 07/09/18 18:34 Pulse Ox 95 07/09/18 18:34 Course/Dx - Course Course Of Treatment: 47 y/o male presents to the urgent care c/o a painful lump w/ some redness in his Rt upper medial aspect of the Rt thigh for the past 2 weeks. 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 Pt states it is getting bigger and painful since yesterday. Pain is 8/10 specially w/ sitting and at touch. Pt has not taken anything to alleviate symptoms. Pt has Hx of DM type II , but denies Hx MRSA, fever, SOB, chest pain, abdominal pain, N/V/D, calf pain. Hx obtained. Pt w/ medial aspect of the Rt thigh w/ a small erythematous pustule that is indurated and fluctuant, tender to palpation, swollen, and warm to touch about 2.0x2.0cm in size. FROM of Rt thigh on examination. I&D of abscess procedure:The procedure was explained and consent obtained. [place] protocol performed. The wound was anesthetized with 3mL of Lido 1% with good anesthesia. Sterile drape and prep were done. The fluctuant center was incised with #11 blade scalpel. A moderate amount of caseous bloody material was expressed . wound cultures obtained and sent to lab top r/o MRSA. The wound was probed for loculated areas and irrigated with normal saline. The wound was packed loosely with wick or left open. Bacitracin topical ointment applied and wound covered with sterile dressing. The patient tolerated the procedure well. Pt is Sulfa allergic. Pt Rx Keflex PO and ibuprofen PO for pain. Advised to return to the urgent care for wound check up in 2 days. Pt advised fever develops and pain increase despite ABX to go immediately to the ER for further management. Pt's BP is elevated today advised to decrease salt in diet, monitor BP and f/u with PCP for further management. Pt understood and agreed with D/C instructions. Left the clinic ambulating A&OX3. - Differential Diagnoses - Skin Complaint Differential Diagnoses: Abscess, Cellulitis, Contact Dermatitis, Local Allergic Reaction, MRSA - Diagnoses Provider Diagnosis: Abscess of right thigh, Uncontrolled hypertension Discharge - Sign-Out/Discharge Documenting (check all that apply): Patient Departure - d/c home All imaging exams completed and their final reports reviewed: No Studies - Discharge Plan Condition: Stable Disposition: HOME Prescriptions: Bacitracin OINTMENT* 1 applic TOPICAL BID #1 tube Cephalexin CAP* [Keflex CAP*] 500 mg PO QID #26 cap Patient Education Materials: Abscess (ED), Low-Sodium Diet (ED) Forms: *Work Release Referrals: Jeffrey Rodirguez [Primary Care Provider] - 2 Days Additional Instructions: 1-Please take full course of antibiotic to avoid resistance. Keep wound clean and dry with a sterile dressing. Apply bacitracin topical as directed. first dose given at the clinic tonight 2- F/u wound check up in 2 days with your PCP or at the urgent care for removal of packing 3-. Take Ibuprofen PO q6-8hrs prn for pain or swelling. 4-If you develop fever or redness despite antibiotic please go to the ER immediately or return to the Urgent care. 5- Wound culture sent to lab, if any abnormal result you will receive a call from us. 6- Your BP is elevated today. please decrease salt in your diet, monitor BP and if it continues to be elevated please f/u with your PCP for further management. - Billing Disposition and Condition Condition: STABLE Disposition: Home
[2018-07-09] MEDS ORDERED: Lidocaine 1%* 5 ML VIAL INJ ONE (19:18)
[2018-07-09] MEDS ORDERED: Cephalexin CAP* 500 MG PO ONE ×2 (20:10→20:12)
--- NOTE | 2018-07-11 08:13 | UC ---
- Progress Note Progress Note: wound gram strain final no organisms await culture no change sean 07/11/18 Course/Dx - Diagnoses Provider Diagnoses: Abscess of right thigh, Uncontrolled hypertension Discharge - Sign-Out/Discharge Documenting (check all that apply): Post-Discharge Follow Up All imaging exams completed and their final reports reviewed: No Studies - Discharge Plan Condition: Stable Disposition: HOME Prescriptions: Bacitracin OINTMENT* 1 applic TOPICAL BID #1 tube Cephalexin CAP* [Keflex CAP*] 500 mg PO QID #26 cap Patient Education Materials: Abscess (ED), Low-Sodium Diet (ED) Forms: *Work Release Referrals: Jeffrey Rodriguez [Primary Care Provider] - 2 Days Additional Instructions: 1-Please take full course of antibiotic to avoid resistance. Keep wound clean and dry with a sterile dressing. Apply bacitracin topical as directed. first dose given at the clinic tonight 2- F/u wound check up in 2 days with your PCP or at the urgent care for removal of packing 3-. Take Ibuprofen PO q6-8hrs prn for pain or swelling. 4-If you develop fever or redness despite antibiotic please go to the ER immediately or return to the Urgent care. 5- Wound culture sent to lab, if any abnormal result you will receive a call from us. 6- Your BP is elevated today. please decrease salt in your diet, monitor BP and if it continues to be elevated please f/u with your PCP for further management. - Billing Disposition and Condition Condition: STABLE Disposition: Home
== END 2018-07-09 20:43 | disposition home or self-care (01) ==
LOC: UCCORT 18:22
DX: L02.415 Cutaneous abscess of right lower limb (principal); I10 Essential (primary) hypertension; E11.9 Type 2 diabetes mellitus without complications; F32.9 Major depressive disorder, single episode, unspecified; Z91.030 Bee allergy status; Z79.899 Other long term (current) drug therapy
CPT/HCPCS: 10060; 87070; 87205; 99212; A9270-GY; G0463